=== PATIENT | female | born 1940 | race Asian ===

== ENCOUNTER 2022-06-18 21:04 | Emergency (ER) | payer OTHER ==
[~2022-06-18] VITALS: Ht 167.6 cm; Wt 60.1 kg
[2022-06-18 21:47] LABS: PLATELET COUNT 269 K/uL (152-353)
[2022-06-18 21:52] LABS: POTASSIUM 3.7 mmol/L (3.6-5.2)
[2022-06-18 22:48] VITALS: BP 148/60; TEMP 97.8
[2022-06-19] MEDS ORDERED: FURO40TA93 PO (10:26)
[2022-06-19] MEDS ORDERED: ASPI325T40 PO (10:27)
[2022-06-19] MEDS ORDERED: GLUCAGEN HYPOKIT1 MG INJ (10:28)
[2022-06-19] MEDS ORDERED: [UNRECOGNIZED DRUG - CODE] RE (10:29)
[2022-06-19] MEDS ORDERED: DIVALPROEX125 MG PO (10:30)
[2022-06-19] MEDS ORDERED: DONE5TAB PO (10:31)
[2022-06-19] MEDS ORDERED: LANTUS100 UNIT/M SC (10:31)
[2022-06-19] MEDS ORDERED: TRAZ50TA36 PO ×3 (10:32→10:38)
[2022-06-19] MEDS ORDERED: METFTAB PO (10:33)
[2022-06-19] MEDS ORDERED: MEMA10TA2 PO (10:35)
[2022-06-19] MEDS ORDERED: CARV3.12 PO (10:36)
[2022-06-19] MEDS ORDERED: BUSPIRONE10 MG PO (10:37)
== END 2022-06-18 22:48 | disposition still patient (30) ==
LOC: ED 21:04
PROVIDERS: Emergency Medicine Emergency Medical Services
DX: R46.89 Other symptoms and signs involving appearance and behavior (principal); Z11.52 Encounter for screening for COVID-19; Z04.6 Encounter for general psychiatric examination, requested by authority; I10 Essential (primary) hypertension
CPT/HCPCS: 36415; 80053; 85027; 87635; 93005; 99283; U0003

== ENCOUNTER 2022-06-20 05:30 | Emergency (ER) | payer OTHER ==
[~2022-06-20] VITALS: Ht 167.6 cm; Wt 64.4 kg
[2022-06-20 05:30] VITALS: TEMP 97.8
[~2022-06-20 05:30] MED LIST: ASPI325T40 PO; BUSPIRONE10 MG PO; CARV3.12 PO; DIVALPROEX125 MG PO; DONE5TAB PO; FURO40TA93 PO; GLUCAGEN HYPOKIT1 MG INJ; LANTUS100 UNIT/M SC; MEMA10TA2 PO; METFTAB PO; TRAZ50TA36 PO; [UNRECOGNIZED DRUG - CODE] RE
[2022-06-20 06:17] LABS: POTASSIUM 3.7 mmol/L (3.6-5.2)
[2022-06-20 06:20] LABS: PLATELET COUNT 267 K/uL (152-353)
[2022-06-20 09:12] VITALS: BP 134/50
== END 2022-06-20 09:26 | disposition still patient (30) ==
LOC: ED 05:30
PROVIDERS: Emergency Medicine
DX: E11.649 Type 2 diabetes mellitus with hypoglycemia without coma (principal); Z79.4 Long term (current) use of insulin; F03.90 Unspecified dementia, unspecified severity, without behavioral disturbance, psychotic disturbance, mood disturbance, and anxiety
CPT/HCPCS: 36415; 80048; 82948; 85027; 93005; 96365; 96375; 99284; J7060